=== PATIENT | male | born 1985 ===

== ENCOUNTER 2022-03-24 19:53 | Emergency (ER) | payer BC ==
[2022-03-24] MEDS ORDERED: Morphine 4 MG/ML Syringe IVPUSH ONE (21:15)
== END 2022-03-24 23:23 | disposition home or self-care (01) ==
LOC: JD.ED 19:53
DX: S42.001A Fracture of unspecified part of right clavicle, initial encounter for closed fracture (principal); W18.39XA Other fall on same level, initial encounter
CPT/HCPCS: 73030; 96374; 99283; J2270

== ENCOUNTER 2022-03-28 08:32 | Emergency (ER) | payer BC ==
[2022-03-28] MEDS ORDERED: Morphine 2 MG/ML SYRINGE IM ONE (10:55)
== END 2022-03-28 10:58 ==
LOC: JD.ED 08:32
DX: S42.021A Displaced fracture of shaft of right clavicle, initial encounter for closed fracture (principal)
CPT/HCPCS: 73000; 96372; 99283; J2270